=== PATIENT | female | born 1995 | race African-American/Black ===

== ENCOUNTER 2023-06-05 13:45 | Observation (INO) | payer OTHER, MEDICAID, SELFPAY ==
[2023-06-05] VITALS (17 sets, daily range): BP systolic 90–149; BP diastolic 38–84; PULSE 86–115; RESP 12–25; TEMP 36.6–37.1; O2SAT 98–100; BMI 46.7
--- NOTE | ~2023-06-05 | US_ITS ---
CORRECTED REPORT corrected exam description [facility] [place] 06/07/2023 This report was recreated on 06/07/23. Original report was US OB transvaginal DATE: 06/06/2023 11:41 INDICATION: Miscarriage. Evaluate for products of conception. TECHNIQUE: Real-time imaging via transvaginal approach COMPARISON: None FINDINGS: The central endometrial echo measures up to 5 mm AP dimension in the fundic area but there appears to be some widening to 1.4 cm AP dimension in the lower uterine segment which may represent some retained products of conception. Right ovary measures 1.9 x 3.1 x 2.5 cm. Left ovary measures 2.4 x 1.2 x 2 cm. No pelvic mass or abnormal pelvic free fluid collection is noted. IMPRESSION: 1.4 cm AP dimension of lower uterine endometrial echo suggesting retained products of conception Reviewed, dictated and finalized at [facility]. Reviewed, dictated and finalized at [facility]. MTDD IMPRESSION: 1.4 cm AP dimension of lower uterine endometrial echo suggesting re tained products of conception
--- NOTE | ~2023-06-05 | US_ITS ---
EXAMINATION: US OB <= 14 weeks fetus DATE: 06/05/2023 15:57 INDICATION: Vaginal bleeding. TECHNIQUE: Real-time transabdominal and transvaginal pelvic ultrasound was performed. COMPARISON: None. FINDINGS: TRANSABDOMINAL ULTRASOUND: The uterus measures 10.1 x 5.4 x 7.0 cm. TRANSVAGINAL ULTRASOUND: The Maier catheter is in the endometrial complex. There is no visible intrau terine gestational sac. The ovaries are not visualized. There is physiologic free fluid in the pelvis . IMPRESSION: 1. Maier catheter in abnormal position in the endometrial complex. 2. No visible intrauterine gestational sac which may be normal in early . Sensitivity is dec reased by the Maier catheter. Spontaneous and ectopic are not excluded. Sertial be ta hCGs are recommended. Reviewed, dictated and finalized at [facility]. [facility] IMPRESSION: 1. Maier catheter in abnormal position in the endometrial complex. 2. No visible intrauterine gestational sac which may be normal in early pregnan cy. Sensitivity is decreased by the Maier catheter. Spontaneous and ec topic are not excluded. Sertial beta hCGs are recommended.
--- NOTE | 2023-06-05 13:42 | ED.PREGNANCY ---
HPI - General Chief complaint: Vaginal Bleeding Stated complaint: vag bleed, Source: patient and other (ED provider (spoken with via phone at approximately 12noon)) Mode of arrival: EMS Limitations: no limitations History of Present Illness HPI Narrative: This is a 27-year-old female presents from outside emergency department report of vaginal bleeding during . Patient presented with vaginal bleeding and was not aware she was she states she has had a Nexplanon in place. LMP was February 2023. Unknown term and count in para as her first delivery was with a baby in which she didn't know she was . Patient states she awoke overnight and was experiencing profuse vaginal bleeding that went through 3 towels. She denies any nausea. She is having a cramping sensation like menstrual cramps. She also notices pain and discomfort with the placement of the Maier and did have some experience of dizziness will being moved from 1 cot to the other but otherwise denies this presently. Patient transferred from OSH due to absence of OBGyn. Dr. Barrera had already been notified by ED attending and discussed/accepted patient. No transvaginal ultrasound had been performed. ED provider reported the patient had initially been hemodynamically stable but did become hypotensive 60s/40s but without tachycardia and received 2 units IV fluid. They reported that a unit of blood has been ordered but not yet given at the time of conversation at approximately 12 noon and EMS reports blood bank still is not released blood at the time of their arrival to [facility] patient for transport does not yet given. They do note that TXA was given. Patient's BP improved and has been stable during transport. Related Data Home Medications Medication Instructions Recorded Confirmed No Home Medications 06/05/23 06/05/23 Allergies Allergy/AdvReac Type Severity Reaction Status Date / Time codeine Allergy Hives Verified 06/05/23 19:50 penicillin G Allergy Hives Verified 06/05/23 19:50 Exam Narrative: GENERAL: Well-appearing, well-nourished, and in no acute distress. HEAD: Normocephalic, atraumatic. EYES: Non injected, non icteric ENT: Nares clear, no rhinorrhea or epistaxis. NECK: Supple. CHEST: speaking full sentences. No respiratory distress. HEART: Regular rate and rhythm. . ABDOMEN: Soft, nondistended. Obese. No tenderness to palpation. No rigidity or guarding. : Scant blood in tubing of Maier. No significant bleeding around vulva. EXTREMITIES: Normal range of motion. No edema. SKIN: Warm, dry, no rash. NEURO: No focal deficits. Alert and oriented x3. PSYCH: Normal mood and affect. Course Vital Signs Vital signs: Vital Signs Temperature 98.7 F 06/05/23 14:03 Pulse Rate 94 06/05/23 14:03 Respiratory Rate 17 06/05/23 14:03 Blood Pressure 118/66 06/05/23 14:03 Pulse Oximetry 100 06/05/23 14:03 Oxygen Delivery Room Air 06/05/23 14:03 Temperature 98.1 F 06/05/23 22:34 Pulse Rate 88 06/05/23 22:31 Respiratory Rate 18 06/05/23 22:34 Blood Pressure 118/78 06/05/23 22:31 Pulse Oximetry 98 06/05/23 17:41 Oxygen Delivery Room Air 06/05/23 14:03 MDM - OB/Uterine Contractions MDM Narrative Medical decision making narrative: This is a 27 year who presents from outside emergency department with positive test, BHCG 14,000 and profuse vaginal bleeding in which patient became hypotensive requiring 2U IV fluids, TXA, and tamponade using Maier inserted into cervix with balloon inflated to 20cc. In the emergency department she is afebrile with vital signs that are within normal limits. Patient is discussed with Dr. Barrera upon arrival we obtain repeat labs. Notes that patient should receive 2 units of blood and we did discuss the ability to perform transvaginal ultrasound with Maier balloon in place. Patient may require D&C. Patient has had a drop in h
[2023-06-05 14:08] LABS: Basophils Percent Auto 0.3 % (0.2-1.2); Hematocrit 28.4 % (37.0-47.0); Hemoglobin 9.3 g/dL (12.0-15.0); Immature Granulocyte Absolute 0.04 K/mm3 (0.00-0.031); Immature Granulocyte Percent A 0.4 % (0-0.5); Lymphocytes Absolute Auto 0.83 K/mm3 (0.9-3.2); Lymphocytes Percent Auto 7.4 % (18.3-44.2); Mean Corpuscular HGB Conc 32.7 g/dl (32-36); Mean Corpuscular Hemoglobin 29.4 pg (26-34); Mean Corpuscular Volume 89.9 fl (80-100); Mean Platelet Volume 10.1 fl (7.4-10.4); Monocytes Absolute Auto 0.3 K/mm3 (0.1-0.6); Monocytes Percent Auto 2.8 % (2.6-8.5); Neutrophils Absolute Auto 10.1 K/mm3 (1.3-6.7); Neutrophils Percent Auto 89.1 % (45.5-73.1); Platelet Count Result 253 k/mm3 (150-375); Red Blood Count 3.16 M/mm3 (4.2-5.4); Red Cell Distribution Width 13.1 % (11.5-14.5); White Blood Count 11.3 K/mm3 (4.5-10.0)
[2023-06-05 14:18] LABS: Alanine Aminotransferase 11 U/L (6-35); Albumin Level 3.2 g/dL (3.5-5.1); Alkaline Phosphatase 51 U/L (38-126); Anion Gap 2 mmol/L (8-16); Aspartate Amino Transferase 19 U/L (14-36); Bilirubin,Total 0.4 mg/dL (0.2-1.3); Blood Urea Nitrogen 9 mg/dL (7-17); Calcium 8.5 mg/dL (8.4-10.2); Carbon Dioxide 23 mmol/L (22-30); Chloride 110 mmol/L (98-107); Estimated CRCL calculation 143 ml/min; Estimated Glomerular Filt Rate > 60; Glucose 115 mg/dL (65-110); Potassium 4.9 mmol/L (3.4-5.0); Sodium 135 mmol/L (137-145)
[2023-06-05 14:20] LABS: Partial Thromboplastin Time 24.2 SECONDS (22.3-36.8)
--- NOTE | 2023-06-05 15:20 | PC.NURSE ---
Pt returned from US
[2023-06-05] MEDS: SODIUM CHLORIDE 0.9% IV 250 ML 30 ML IV CONT (15:41)
--- NOTE | 2023-06-05 18:23 | PC.NURSE ---
Called Dr. Barrera at 1820 to report recent vaginal bleeding. Just a few drops noted on pad at 1810. Ordered a regular diet for her per MD starting tonight. Pain medication orders received. MD asks to keep patient overnight for further evaluation tomorrow.
--- NOTE | 2023-06-05 19:27 | ADMGEN ---
This patient, Osmani Fletcher, was admitted to OB Post 115-00. Patient/family oriented to hospital policies and general routines including ID bracelet, bed and alarms, visiting hours, pain management, procedures, bathroom and other care routines, personal items, smoking policy, room service/diet, and visiting hours. Information on how to activate the Rapid Response Team has been discussed. Patient/Family are encouraged to report perceived risks to care and to ask questions if they do not understand what they are told or what they should do.
[2023-06-05] MEDS: KETOROLAC 30 MG/ML VIAL (*BKC) IV PUSH (19:48)
--- NOTE | 2023-06-05 22:35 | PC.NURSE ---
Patient got up to shower. Stated that she had a couple small sized clots pass while in the shower. One quarter sized clot noted. Patient says that all other clots were smaller than that one and bleeding has been at a minimum.
[2023-06-06 04:38] VITALS: BP 109/46; PULSE 87
[2023-06-06 04:39] VITALS: BP 116/59; PULSE 95
[2023-06-06 04:45] VITALS: RESP 20; TEMP 36.4
--- NOTE | 2023-06-06 04:47 | PC.NURSE ---
Current time 0447 due to daylight savings time. Check patients bleeding at 0445. Few red drops on pad noted. Bleeding very minimal at this time.
[2023-06-06 05:00] LABS: Hematocrit 27.2 % (37.0-47.0); Hemoglobin 9.1 g/dL (12.0-15.0)
[2023-06-06 06:28] VITALS: BP 106/54; PULSE 97; PULSE 98; RESP 16; TEMP 36.5; O2SAT 100
--- NOTE | 2023-06-06 06:28 | PC.NURSE ---
Pt was sleeping and woke as I entered her room. Pt instructed in NPO status in case she requires a D&C this morning.
[2023-06-06 06:29] VITALS: BP 109/46; PULSE 95
--- NOTE | 2023-06-06 09:08 | PC.NURSE ---
Called Dr. Barrera and updated on H&H, BHCG, small amount red vaginal bleeding on pad this morning, and VS stable. Discussed pt initially feeling cramping she rated a 3-4 this morning, but now down to a 1-2. MD confirmed it is OK for pt to eat this morning.
--- NOTE | 2023-06-06 09:19 | PC.NURSE ---
Dr. Barrera called and requested pt have a repeat U/S this am to check for any remaining contents in uterus. Plan of care explained to pt.
--- NOTE | 2023-06-06 09:30 | PC.NURSE ---
Pt receptive to SHARE information. Reviewed folder with pt and SHARE consent signed. Discussed grief process.
--- NOTE | 2023-06-06 11:00 | PC.NURSE ---
Dr. Barrera on unit and in to see pt.
--- NOTE | 2023-06-06 11:12 | PM.IMHP ---
H&P: HPI History of Present Illness Date/Time: 06/06/23 11:12 Chief Complaint: vaginal bleeding Narrative: 27-year-old 2 para 1001 at unknown gestation in the 1st trimester. Presents to the emergency department with severely heavy vaginal bleeding. Persistent bleeding was temporized with a Maier catheter placed in the intrauterine cavity. She was found to be hypotensive temporarily during her ER stay, but it was transient. Significant blood loss was observed. Ultrasound could not be performed initially the because of the placement of Maier catheter there was poor visualization the intrauterine cavity. She received a unit of blood. She was very stable after placement of Maier catheter the uterus. She was admitted for observation. After about 14-16 hours of observation she will be discharged. Repeat ultrasound is pending. She will follow up in the office very quickly. Review of Systems Review of Systems: All systems reviewed & are unremarkable except as noted in HPI and below Constitutional: Constitutional: Denies chills, Denies fatigue, Denies fever(s) and Denies weakness Eyes: Eyes: Denies blurry vision, Denies change in vision, Denies loss of peripheral vision, Denies loss of vision, Denies other visual disturbances and Denies eye pain ENT: Denies vertigo, Denies dizziness, Denies hearing loss, Denies mouth pain, Denies nasal obstruction, Denies neck mass and Denies neck pain Cardiovascular: Cardiovascular: Denies chest pain, Denies diaphoresis, Denies syncope, Denies leg edema and Denies dyspnea Respiratory: Respiratory: Denies chest congestion, Denies cough, Denies hemoptysis, Denies dyspnea and Denies wheezing Gastrointestinal: Gastrointestinal: Denies abdominal pain, Denies constipation, Denies diarrhea, Denies nausea and Denies vomiting Genitourinary: Genitourinary: Denies hematuria, Denies change in libido, Denies nocturia, Denies genital lesions, Denies flank pain and Denies urinary urgency Musculoskeletal: Musculoskeletal: Denies abnormal gait, Denies back pain, Denies myalgias, Denies arthralgias, Denies joint swelling, Denies muscle weakness and Denies neck pain Integumentary/Breasts: Skin/Breast: Denies swelling, Denies breast pain, Denies breast mass, Denies dry skin, Denies nipple discharge, Denies unusual bruising and Denies jaundice Neurologic: Denies Neuro-related abnormal movements, Denies Abnormal speech present, Denies abnormal gait, Denies behavioral changes, Denies confusion, Denies vertigo, Denies dizziness, Denies syncope, Denies loss of vision, Denies memory loss, Denies convulsions and Denies weakness Psychiatric: Psychiatric: Denies abnormal sleep pattern, Denies behavioral changes, Denies change in libido, Denies confusion, Denies depression, Denies anhedonia and Denies memory loss Endocrine: Endocrine: Reports no additional endocrine complaints, Denies change in libido and Denies fatigue Hematologic/Lymphatic: Hematologic/Lymphatic: Reports no additional hematologic/lymphatic complaints Allergic/Immunologic: Allergic/Immunologic: Reports no additional allergic/immunologic complaints and Denies wheezing Meds Home Medications and Allergies Home Medications Medication Instructions Recorded Confirmed Type No Home Medications 06/05/23 06/05/23 History Allergies Allergy/AdvReac Type Severity Reaction Status Date / Time codeine Allergy Hives Verified 06/05/23 19:50 penicillin G Allergy Hives Verified 06/05/23 19:50 Vital Signs Vital Signs - 24 hr 06/05/23 14:03 06/05/23 14:30 06/05/23 14:31 Temperature 98.7 F Pulse Rate 94 94 96 Respiratory Rate 17 12 12 Blood Pressure 118/66 110/47 L 123/48 L Pulse Oximetry 100 100 100 Oxygen Delivery Room Air 06/05/23 14:47 06/05/23 15:24 06/05/23 15:41 Temperature 98.4 F Pulse Rate 108 H 89 99 Respiratory Rate 24 H 18 18 Blood Pressure 90/46 L 100/53 L 119/66 Pulse Oximetry 100 100 100 Oxygen Delivery
--- NOTE | 2023-06-06 11:14 | PC.NURSE ---
To U/S per wheelchair.
--- NOTE | 2023-06-06 12:00 | PC.NURSE ---
Dr. Barrera informed of U/S results. Orders for discharge received.
--- NOTE | 2023-06-06 12:45 | PC.NURSE ---
Pt waiting on family to come drive her home.
--- NOTE | 2023-06-27 20:47 | P.PNOB_ITS ---
OB - Triage/Final Diagnosis Visit Information Comments/Additional reasons for admission: I have assessed the risk for this patient, Osmani Fletcher, and determined that she would benefit from observation care. Evaluation Laboratory results: Laboratory Tests 06/05/23 06/06/23 14:02 04:38 WBC 11.3 H RBC 3.16 L Hgb 9.3 L 9.1 L Hct 28.4 L 27.2 L MCV 89.9 MCH 29.4 MCHC 32.7 RDW 13.1 Plt Count 253 MPV 10.1 Immature Gran % (Auto) 0.4 Neut % (Auto) 89.1 H Lymph % (Auto) 7.4 L [place] % (Auto) 2.8 Eos % (Auto) 0.0 Baso % (Auto) 0.3 Lymph # (Auto) 0.83 L [place] # (Auto) 0.3 Eos # (Auto) 0.0 Baso # (Auto) 0.0 Abs Immat Gran (auto) 0.04 H Absolute Neuts (auto) 10.1 H Absolute Nucleated RBC 0.0 Nucleated RBC % 0.0 PT 14.0 INR 1.0 APTT 24.2 Sodium 135 L Potassium 4.9 Chloride 110 H Carbon Dioxide 23 Anion Gap 2 L BUN 9 Creatinine 0.60 L Estim Creat Clear Calc 143 Estimated GFR > 60 Glucose 115 H Calcium 8.5 Total Bilirubin 0.4 AST 19 ALT 11 Alkaline Phosphatase 51 Total Protein 6.0 L Albumin 3.2 L Beta HCG, Quant 78453.00 5297.70 Blood Type O Positive Antibody Screen Negative Crossmatch See Detail Final Diagnosis (1) Miscarriage: Code(s): O03.9 - Complete or unspecified spontaneous without complication Status: Acute
== END 2023-06-06 13:10 | disposition home or self-care (01) ==
LOC: ANHED 14:20 → ANHOBPP 17:17
PROVIDERS: Admitting Provider Obstetrics & Gynecology; Emergency Provider Student in an Organized Health Care Education/Training Program; PCP Nurse Practitioner Family; Visit Provider Obstetrics & Gynecology
DX: O03.9 Complete or unspecified spontaneous abortion without complication (principal); Z97.5 Presence of (intrauterine) contraceptive device
CPT/HCPCS: 36415; 36430; 76801; 76817; 80053; 84702; 85014; 85018; 85025; 85610; 85730; 86850; 86900; 86901; 86923; 96361; 96374; 99285; G0378; J1885; J7050; P9016